=== PATIENT | male | born 1980 | race Caucasian/White ===

== ENCOUNTER 2016-07-22 21:31 | Emergency (ER) | payer OTHER, BC ==
[2016-07-22 21:59] VITALS: BP 133/81; PULSE 78; TEMP 97.9; BMI 28.5
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
[2016-07-22 22:59] LABS: BASOPHIL 0.4 % (0-2.0); EOSINOPHIL 4.6 % (0-4.5); MCH 33.9 pg (25.7-33.7); MCHC 33.9 g/dl (32.0-35.9); MEAN PLT VOLUME 7.3 fl (7.5-11.1); NEUTROPHILS 62.6 % (42.8-82.8); PLATELET COUNT 311 K/MM3 (134-434); RDW 13.9 % (11.9-15.9); WHITE BLOOD COUNT 8.2 K/mm3 (4.0-10.0)
[2016-07-22 23:56] LABS: HIV 1 & 2 AB NEGATIVE; HIV 1 AGp24 NEGATIVE
[2016-07-23 01:54] LABS: ALBUMIN 4.1 g/dl (3.4-5.0); ANION GAP 13 (8-16); CALCIUM 8.9 mg/dL (8.5-10.1); CHOLESTEROL 168 mg/dL (50-200); CO2 24 mmol/L (21-32); CREATININE 0.9 mg/dL (0.7-1.3); GLUCOSE,RANDOM 98 mg/dL (74-106); PHOSPHOROUS 3.5 mg/dL (2.5-4.9); SGPT/ALT 83 U/L (12-78); TOT PROT 7.7 g/dl (6.4-8.2)
[2016-07-23 01:56] LABS: ALK PHOS 76 U/L (45-117); BILIRUBIN,TOTAL 0.4 mg/dL (0.2-1.0)
[2016-07-23 01:57] LABS: LDH 226 U/L (87-241); SGOT/AST 49 U/L (15-37)
[2016-07-26 14:18] LABS: HEP B SURFACE AB Reactive (.)
== END 2016-07-22 23:19 | disposition home or self-care (01) ==
LOC: JER 21:31
DX: Z77.21 Contact with and (suspected) exposure to potentially hazardous body fluids (principal); X58.XXXA Exposure to other specified factors, initial encounter; Y93.89 Activity, other specified; Y92.238 Other place in hospital as the place of occurrence of the external cause; Y99.0 Civilian activity done for income or pay
CPT/HCPCS: 36415; 80053; 82465; 82977; 83615; 84100; 84478; 84550; 85025; 86704; 86706; 86803; 87389; 99281-25

== ENCOUNTER 2018-01-08 16:42 | Observation (INO) | payer OTHER, BC ==
--- NOTE | 2018-01-08 16:48 | PDOC ---
History of Present Illness - General Chief Complaint: CVA/TIA Stated Complaint: SYNCOPE History Source: Patient Past History - Past Medical History Allergies/Adverse Reactions: Allergies Allergy/AdvReac Type Severity Reaction Status Date / Time No Known Allergies Allergy Verified 10/30/14 12:41 Home Medications: Ambulatory Orders Carvedilol 0 mg PO DAILY 03/29/13 Simvastatin [Zocor -] 0 mg PO HS 03/29/13 Clonazepam [Klonopin] 0.5 mg PO BID #20 tab.rapdis 10/30/14 Cardiac Disorders: Yes (CT + stent 3y ago, classic presentation, no clear etio for early onset) HTN: Yes Hypercholesterolemia: Yes - Surgical History Abdominal Surgery: Yes Cardiac Surgery: Yes (STENT) - Immunization History Immunization Up to Date: Yes - Suicide/Smoking/Psychosocial Hx Smoking Status: No Smoking History: Never smoked Have you smoked in the past 12 months: No Number of Cigarettes Smoked Daily: 0 If you are a former smoker, when did you quit?: 2009 Hx Alcohol Use: Yes Drug/Substance Use Hx: No Substance Use Type: Alcohol
--- NOTE | 2018-01-08 16:55 | PDOC ---
Rapid Medical Evaluation Chief Complaint: Syncope/Near Syncope Medical Evaluation: Allergies Allergy/AdvReac Type Severity Reaction Status Date / Time No Known Allergies Allergy Verified 10/30/14 12:41 01/08/18 16:48 I have performed a brief in-person evaluation of this patient. The patient presents with a chief complaint of: dizziness/ + near syncopal episode Pertinent physical exam findings: when assisting with another patient who fell at entry, patient went aphasic and unresponsve , then became slack and fell to his knees. came to ~ 30sec but uncertain as to whereabouts and activity. I have ordered the following: taken to ER and CT head ordered. The patient will proceed to the ED for further evaluation. 01/08/18 16:55
[2018-01-08] MEDS ORDERED: SODIUM CHLORIDE 1,000 ML IV SCH (17:00)
--- NOTE | 2018-01-08 17:12 | PDOC ---
Attending Attestation - Physicial Exam PE: 01/08/18 18:04 Constitutional: Awake, alert, oriented. No acute distress. Head: Normocephalic. Atraumatic Eyes: PERRL. EOMI. Conjunctivae are not pale. ENT: Mucous membranes are moist and intact. Posterior pharynx without exudates or erythema. Uvula midline. Neck: Supple. Full ROM. No lymphadenopathy. Cardiovascular: Regular rate. Regular rhythm. S1, S2 regular. Distal pulses are 2+ and symmetric. Pulmonary/Chest: No evidence of respiratory distress. Clear to auscultation bilaterally No wheezing, rales or rhonchi. Abdominal: Soft and non-distended. There is no tenderness. No rebound, guarding or rigidity. No organomegaly. No palpable masses. Good bowel sounds. Back: No CVA tenderness. Musculoskeletal: No edema. No cyanosis. No clubbing. Full range of motion in all extremities. Nocalf tenderness. Radial/pedal pulses are intact and 2+ bilaterally Skin: (+) Neurofibroma scattered on skin, face and legs. Skin is warm and dry. Neurological: Alert and oriented to person, place, and time. Cranial nerves II -XII are grossly intact. Normal speech. Strength is grossly symmetric. No sensory deficits. (+) Subjective right arm weakness but full strength on exam. Psychiatric: Good eye contact. Normal interaction, affect and behavior. 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 He felt dizzy and fell to his knees and was laid n the floor by another hospital employee. He was no responding to anyomne for about 30 seconds and then came to and spoke. His complaint was rt arm weakness. 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 However, it does show chronic right occipital atrophy bilaterally, small chronic occipital infarcts. Patient has a history of coronary artery disease, has had myocardial infarctions and has had cardiac stents, hypercholesterolemia, polycythemia vera impression patient has multiple risk factors and is being admitted to telemetry Consults with neurology and cardiology will be obtained 01/08/18 19:33 Dr Sobeida Donnelly consulted and stated he would put in his orders Dr Lewis consulted for cardiology ct scan head chronic parietal and occipital infarcts,atrophy 01/08/18 23:17 IMP syncopal episode -multiple risk factors : [place], CAD,s/p cardiac stents, polycythemia vera, hypercholesterolemia. He was admitted to telemetry <Joleen Samuels - Last Filed: 01/08/18 23:19>
--- NOTE | 2018-01-08 17:14 | PDOC ---
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 Pt collapsed while assisting another facility patient in the waiting room. JACQUES Carlin observed the incident and reports the pt became aphasic and unresponsive before becoming slack and falling to his knees. Pt returned to normal level of alert after approx. 30 seconds. Noted to be pale. No trauma to head or neck. No witnessed seizure activity. Pt has no recollection of incident. At time of interview, pt is complaining of left arm paresthesia and dizziness. Denies nausea, vomiting, headache, trouble swallowing, SOB, or chest pain. Denies history of similar episodes. On Clopidogrel. PCP: Dr. Franky Avitia Hx: - Works as lead security officer at [employer] Hx: - Polycythemia Vera - IA x2 s/p stents - Cutaneous Neurofibromatosis - HTN - HLD Past History - Past Medical History Allergies/Adverse Reactions: Allergies Allergy/AdvReac Type Severity Reaction Status Date / Time No Known Allergies Allergy Verified 01/08/18 17:05 Home Medications: Ambulatory Orders Carvedilol 12.5 mg PO DAILY 01/08/18 Clopidogrel Bisulfate [Plavix] 75 mg PO DAILY 01/08/18 Escitalopram Oxalate [Lexapro -] 10 mg PO DAILY 01/08/18 Losartan Potassium [Cozaar -] 50 mg PO DAILY 01/08/18 Simvastatin [Zocor -] 20 mg PO HS 01/08/18 Cardiac Disorders: Yes (IA + stent 3y ago, classic presentation, no clear etio for early onset) HTN: Yes Hypercholesterolemia: Yes - Surgical History Abdominal Surgery: Yes Cardiac Surgery: Yes (STENT) - Immunization History Immunization Up to Date: Yes - Suicide/Smoking/Psychosocial Hx Smoking Status: No Smoking History: Never smoked Have you smoked in the past 12 months: No Number of Cigarettes Smoked Daily: 0 If you are a former smoker, when did you quit?: 2009 Hx Alcohol Use: Yes Drug/Substance Use Hx: No Substance Use Type: Alcohol Neuro Specific PMHX - Complaint Specific PMHX Glaucoma: No Review of Systems - Review of Systems Able to Perform ROS?: Yes Comments:: In addition to that documented in the HPI above, the additional ROS was obtained : Constitutional: Denies fevers or chills Eyes: Denies vision changes ENMT: Denies sore throat CV: Denies chest pain Resp: Denies SOB GI: Denies vomiting or diarrhea : Denies painful urination MSK: Denies recent trauma Skin: Denies new rashes Neuro: Per HPI Endocrine: Denies polyuria Heme: Denies bleeding disorders *Physical Exam - Physical Exam Comments: Constitutional: Well-developed, well-nourished male in no acute distress. Found sei-fowlers in hospital bed. Alert and oriented x4. Answered all questions appropriately and completely. Speech was non-labored, non-pressured. Head: Normocephalic. No obvious external signs of trauma. Eyes: PERRL. EOMI. Sclerae white. Conjunctiva moist and not injected. EARS: Hearing grossly intact. NOSE: No nasal discharge. Neck: Supple, trachea is midline. No JVD. Cardiovascular: Regular rate and regular rhythm. No murmur, rubs, clicks, or gallops. Peripheral pulses: Radial pulses full. Respiratory: Breathing unlabored. Equal chest rise and fall. Clear to auscultation bilaterally. No stridor, no wheezing, no rhonchi. Gastrointestinal: abdomen is soft, non-tender, non-distended. Neuro: Alert and oriented. Moving all four extremities spontaneously. No focal deficits, Cranial nerves intact, intact sensation to all four extremities. Upper and lower extremities: proximal and distal strength 5/5, certified medical biller strength 5/ 5 - equal and symmetric. Plantar flexion and dorsiflexion 5/5. Skin: Neurofibromas covering face, arms, chest, abdomen, and back. Globally warm , dry, and intact. No bruising or rashes. Psych: Affect: appropriate. Mood: normal. ED Treatment Course - LABORATORY CBC & Chemistry Diagram: 01/08/18 17:04 01/08/18 17:04 Medical Decision Making - Medical Decision Making *Reviewed vital signs, nursing notes, and prior visit documentation (if available). 37 y/o male s/p witnessed syncopal episode lasting approx. 30 seconds. No history of similar. Afebrile. Vitals unremarkable. NIHSS 0. Physical exam as described above. Stroke protocol was initiated. Pt is not a tPA candidate given rapid improvement of symptoms. D/D includes but not limited to CVA, TIA, arrhythmia, IA, seizure, hypoglycemia, electrolyte derangement, vasovagal. CT of Head revealed no acute intracranial hemorrhage or infarct. Minimal to mild focal posterior parieto-occipital cortical atrophy bilaterally. 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 Mild Chiari type I malformation. EKG revealed sinus rhythm with a ventricular rate of 81 bpm. Normal axis. Normal intervals. No ST segment elevation or depression. Q waves in V1, V2, and V4. EKG suggestive for previous anterolateral infarcts. CBC revealed borderline leukocytosis. H/H elevated consistent with history of polycythemia. CMP revealed mildly elevated AST and ALT with normal Alk Phos. Suspect secondary to statin therapy. Unchanged from previous lab draw. Troponin not elevated. Low suspicion for ACS. No active chest pain. Cholesterol and total LDL elevated. Consistent with history of hypercholesterolemia. PT/INR elevated. 18:[address] Lechuga, neurologist continuous wave operator. Awaiting call back. 18:[address] Ojeda. Discussed HPI, ED course, and current treatment plan. Agrees to admit pt to telemetry on observation status. Requested cardiology consultation and neurology consultation. Page sent to Dr. Burt, icu staff nurse continuous wave operator. Awaiting call back. 01/08/18 19:[address] Ferguson, icu staff nurse continuous wave operator. Agreed with current plan of management. No additional orders dictated. Requested formal consultation order be placed. 01/08/18 19:[address] Donnelly, neurologist continuous wave operator. Agreed with current plan of management. Stated he would add any additional orders himself. Formal consultation order placed. *DC/Admit/Observation/Transfer Diagnosis at time of Disposition: Syncope and collapse - Discharge Dispostion Condition at time of disposition: Stable Decision to Admit order: Yes - Referrals - Patient Instructions - Post Discharge Activity NIH Stroke Scale - Last Known Well Date/Time & Onset Date Last Known Well: 01/08/18 Time Last Known Well: 04:50 - Initial Evaluation Level of consciousness: Alert Ask patient the month and their age: Answers both correctly Ask patient to open & close eyes; make fist and let go: Obeys both correctly Best gaze (horizontal eye movement): Normal Visual field testing: No visual field loss Facial paresis (Show teeth/raise eyebrows/close eyes tight): Normal symmetrical movement Motor Function: Left Arm: Normal Motor Function: Right Arm: Normal (extends arm 90 (or 45) degrees for 10 seconds without drift Motor Function: Left Leg: Normal (extends leg 30 degrees for 5 seconds without drift) Motor Function: Right Leg: Normal (extends leg 30 degrees for 5 seconds without drift) Limb Ataxia: No ataxia Sensory(Use pinprick test arms,legs,trunk,face/side to side): Normal Best language (Describe picture, name items, read sentences): No Aphasia Dysarthria (read several words): Normal articulation Extinction and Inattention: No abnormality - Total Score NIH Stroke Scale Score: 0 tPA Exclusion Checklist 0-3hr - Time Elapsed Date last known well: 01/08/18 Time last known well: 16:45 Elaspsed time: Day(s) and 2 Hour(s) and 36 Minutes - Thrombolytic Therapy Candidate Is the patient eligible for Thrombolytic Therapy?: No - Exclusion Criteria 0-3hr SBP greater than 185 or DBP greater than 110mmHg despite tx: No Recent IC/spinal surgery,head trauma or stroke w/in last 3mo: No Hx of previous IC hemorrhage, IC neoplasm, AVM or aneurysm: No Active internal bleeding: No Blding diathesis(low plt ct, inc PTT,INR>1.7 or use of NOAC): No Symptoms suggest subarachnoid hemorrhage: No CT demonstrates multilobar infarct(>1/3 cerebral hemiphere): No Arterial puncture at noncompressible site in previous 7 days: No Blood glucose concentration less than 50mg/dL (2.7mmol/L): No - Relative Exclusion Criteria 0-3h Life expectancy <1yr/severe co-morbid illness/LINK TRAINER on admit: No Rapid improvement: Yes Recent acute IA (w/in previous 3 months): No Seizure at onset with postictal residual neuro impairments: No Major surgery or serious trauma w/in previous 14 days: No Recent GI or hemorrhage (w/in previous 21 days): No - Ineligibility reason(s) Reasons No tPA given: See reason(s) noted above
[2018-01-08 17:19] LABS: BASO % 1.2 % (0-2.0); HEMOGLOBIN 18.3 GM/dL (11.7-16.9); LYMPH % 18.6 % (8-40); MCH 35.2 pg (25.7-33.7); MCHC 34.4 g/dl (32.0-35.9); MEAN CELL VOLUME 102.1 fl (80-96); MEAN PLT VOLUME 7.2 fl (7.5-11.1); MONO % 8.1 % (3.8-10.2); NEUT % 70.1 % (42.8-82.8); PLATELET COUNT 387 K/MM3 (134-434); RBC 5.19 M/mm3 (4.00-5.60); RDW 13.5 % (11.9-15.9); WHITE BLOOD COUNT 10.8 K/mm3 (4.0-10.0)
[2018-01-08 17:25] LABS: INR 1.13 (0.83-1.09); PROTHROMBIN TIME (PATIENT) 13.3 SEC (9.7-13.0)
[2018-01-08 17:39] LABS: ALBUMIN 4.1 g/dl (3.4-5.0); ALK PHOS 81 U/L (45-117); ANION GAP 10 MMOL/L (8-16); BILIRUBIN,TOTAL 0.4 mg/dL (0.2-1); BLOOD UREA NITROGEN 9 mg/dL (7-18); CALCIUM 8.3 mg/dL (8.5-10.1); CHLORIDE 97 mmol/L (98-107); CHOLESTEROL 207 mg/dL (50-200); CO2 30 mmol/L (21-32); CREATININE 1.1 mg/dL (0.55-1.3); GLUCOSE,RANDOM 116 mg/dL (74-106); HDL CHOLESTEROL 54 mg/dL (40-60); POTASSIUM 4.4 mmol/L (3.5-5.1); SGOT/AST 50 U/L (15-37); SGPT/ALT 85 U/L (13-61); SODIUM 137 mmol/L (136-145); TOT PROT 8.1 g/dl (6.4-8.2); TRIGLYCERIDES 150 mg/dL (0-150)
[2018-01-08 19:09] VITALS: BMI 29.2
[2018-01-08] MEDS ORDERED: ASPIRIN 81 MG CHEWABLE TABLETS PO ONE (19:11)
[2018-01-08] MEDS ORDERED: ASPIRIN 81 MG CHEWABLE TABLETS ONE (19:14)
--- NOTE | 2018-01-08 19:36 | CON.NEURO ---
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 In the emergency room patient had a CAT scan of the head and was stabilized to be admitted to the floor since admission overnight patient had a telemetry. Patient was seen in the ER According to the patient he denies any recent travel no head trauma patient there is no family history of seizure. - Alcohol/Substance Use Hx Alcohol Use: Yes - Smoking History Smoking history: Never smoked Have you smoked in the past 12 months: No Aproximately how many cigarettes per day: 0 If you are a former smoker, when did you quit?: 2009 Home Medications - Allergies Allergies/Adverse Reactions: Allergies Allergy/AdvReac Type Severity Reaction Status Date / Time No Known Allergies Allergy Verified 01/08/18 17:05 - Home Medications Home Medications: Ambulatory Orders Carvedilol 12.5 mg PO DAILY 01/08/18 Clopidogrel Bisulfate [Plavix] 75 mg PO DAILY 01/08/18 Escitalopram Oxalate [Lexapro -] 10 mg PO DAILY 01/08/18 Losartan Potassium [Cozaar -] 50 mg PO DAILY 01/08/18 Simvastatin [Zocor -] 20 mg PO HS 01/08/18 Review of Systems - Review of Systems Neurological: reports: Headache, Incoordination Physical Exam-Neuro Vital Signs: Vital Signs Temperature 97.3 F L 01/08/18 16:42 Pulse Rate 80 01/08/18 19:21 Respiratory Rate 18 01/08/18 19:21 Blood Pressure 110/79 01/08/18 19:21 O2 Sat by Pulse Oximetry (%) 94 L 01/08/18 19:21 Constitutional: Yes: Well Nourished Neck: Yes: WNL Labs: CBC, BMP 01/08/18 17:04 01/08/18 17:04 INR, PTT INR 1.13 (0.83-1.09) H 01/08/18 17:04 - Neuro Exam Level Of Consciousness: Yes: Oriented to Person, Oriented to Place, Oriented to Time Speech: WNL Dominant Hand: Right Cranial Nerves II-XII Intact: Yes Gag: Present DTR's: 1+ Left Bicep, 1+ Right Bicep, 1+ Left Brachioradialis, 1+ Right Brachioradialis Response to light touch: Normal Response to pain prick: Normal Response to temperature: Normal Response to vibration: Normal Motor Strength: 4/5: Left Arm, Right Arm, Left Leg, Right Leg Gait: Deferred Imaging - Results Cat Scan: Image Reviewed Problem List - Problems (1) Syncope and collapse Assessment/Plan: syncope in a 37-year-old man with no medical history of seizure Rule out cardiac arrhythmia Neurological exam is within normal 1. Agree to admit and monitor 2. Review the MRI of the brain with no contrast 3. Follow-up with cardiology 4. EEG with seizure protocol Thank you very much for the kind referral Code(s): R55 - SYNCOPE AND COLLAPSE
--- NOTE | 2018-01-08 20:32 | HP ---
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 JACQUES Carlin observed the incident and reports the pt became aphasic and unresponsive before becoming slack and falling to his knees. Pt returned to normal level of alert after approx. 30 seconds. Noted to be pale. No trauma to head or neck. No witnessed seizure activity. - Smoking History Smoking history: Never smoked Have you smoked in the past 12 months: No Aproximately how many cigarettes per day: 0 If you are a former smoker, when did you quit?: 2009 - Alcohol/Substance Use Hx Alcohol Use: Yes Home Medications - Allergies Allergies/Adverse Reactions: Allergies Allergy/AdvReac Type Severity Reaction Status Date / Time No Known Allergies Allergy Verified 01/08/18 17:05 - Home Medications Home Medications: Ambulatory Orders Carvedilol 12.5 mg PO DAILY 01/08/18 Clopidogrel Bisulfate [Plavix] 75 mg PO DAILY 01/08/18 Escitalopram Oxalate [Lexapro -] 10 mg PO DAILY 01/08/18 Losartan Potassium [Cozaar -] 50 mg PO DAILY 01/08/18 Simvastatin [Zocor -] 20 mg PO HS 01/08/18 Physical Examination Vital Signs: Vital Signs Temperature 97.3 F L 01/08/18 16:42 Pulse Rate 80 01/08/18 19:21 Respiratory Rate 18 01/08/18 19:21 Blood Pressure 110/79 01/08/18 19:21 O2 Sat by Pulse Oximetry (%) 94 L 01/08/18 19:21 Constitutional: Yes: No Distress HENT: Yes: Atraumatic Neck: Yes: Supple Cardiovascular: Yes: Regular Rate and Rhythm Respiratory: Yes: CTA Bilaterally Gastrointestinal: Yes: Normal Bowel Sounds Extremities: Yes: WNL Edema: No Neurological: Yes: Alert, Oriented Labs: CBC, BMP 01/08/18 17:04 01/08/18 17:04 Problem List - Problems (1) Syncope and collapse Assessment/Plan: tele monitoring fu cardiac enzymes cardiology and neuro consult Code(s): R55 - SYNCOPE AND COLLAPSE Assessment/Plan Laboratory Tests 01/08/18 01/08/18 01/08/18 17:04 17:04 17:04 WBC 10.8 H RBC 5.19 Hgb 18.3 H Hct 53.0 H MCV 102.1 H MCH 35.2 H MCHC 34.4 RDW 13.5 Plt Count 387 D MPV 7.2 L Absolute Neuts (auto) 7.6 Neutrophils % 70.1 Lymphocytes % 18.6 Monocytes % 8.1 Eosinophils % 2.0 Basophils % 1.2 Nucleated RBC % 0 PT with INR 13.30 H INR 1.13 H Sodium 137 Potassium 4.4 Chloride 97 L Carbon Dioxide 30 Anion Gap 10 BUN 9 Creatinine 1.1 Creat Clearance w eGFR > 60 Random Glucose 116 H Calcium 8.3 L Total Bilirubin 0.4 AST 50 H ALT 85 H Alkaline Phosphatase 81 Creatine Kinase 54 Troponin I < 0.02 Total Protein 8.1 Albumin 4.1 Triglycerides 150 Cholesterol 207 H Total LDL Cholesterol 135 H HDL Cholesterol 54 Active Medications Generic Name Dose Route Start Last Admin Trade Name Freq PRN Reason Stop Dose Admin Carvedilol 12.5 mg 01/09/18 10:00 Coreg - PO DAILY [facility] Clopidogrel Bisulfate 75 mg 01/09/18 10:00 Plavix - PO DAILY [facility] Escitalopram Oxalate 10 mg 01/09/18 10:00 Lexapro - PO DAILY [facility] Heparin Sodium (Porcine) 5,000 unit 01/08/18 22:00 Heparin - SQ BID [facility] Sodium Chloride 1,000 mls @ 42 mls/hr 01/08/18 17:00 01/08/18 18:01 Normal Saline - IV 42 mls/hr ASDIR [facility] Administration Losartan Potassium 50 mg 01/09/18 10:00 Cozaar - PO DAILY [facility] Non-Formulary Medication 20 mg 01/08/18 22:00 Simvastatin PO HS [facility]
[2018-01-08 20:48] LABS: GAMMA GLUTAMYL TRANSPEPTIDASE 304 U/L (5-85)
[2018-01-08 21:00] LABS: GAMMA GLUTAMYL TRANSPEPTIDASE 305 U/L (5-85)
[2018-01-08] MEDS ORDERED: ATORVASTATIN CA 40 MG TABLET (FP) ONE (21:42)
[2018-01-08] MEDS ORDERED: HEPARIN NA (PORCINE) 5,000 UNITS/ML 1ML VIAL ONE (21:42)
[2018-01-08] MEDS: HEPARIN NA (PORCINE) 5,000 UNITS/ML 1ML VIAL SQ SCH (21:51)
[2018-01-08] MEDS ORDERED: ATORVASTATIN CA 10 MG TABLET (FP) PO SCH (22:00)
[2018-01-09 07:29] LABS: BASO % 2.1 % (0-2.0); HEMATOCRIT 49.2 % (35.4-49); HEMOGLOBIN 16.4 GM/dL (11.7-16.9); LYMPH % 22.1 % (8-40); MCH 34.3 pg (25.7-33.7); MCHC 33.4 g/dl (32.0-35.9); MEAN CELL VOLUME 102.5 fl (80-96); MEAN PLT VOLUME 7.6 fl (7.5-11.1); MONO % 10.7 % (3.8-10.2); NEUT % 63.1 % (42.8-82.8); PLATELET COUNT 290 K/MM3 (134-434); RDW 13.5 % (11.9-15.9); WHITE BLOOD COUNT 8.6 K/mm3 (4.0-10.0)
[2018-01-09 08:31] LABS: ALBUMIN 3.6 g/dl (3.4-5.0); ALK PHOS 75 U/L (45-117); ANION GAP 8 MMOL/L (8-16); BILIRUBIN,TOTAL 0.4 mg/dL (0.2-1); BLOOD UREA NITROGEN 17 mg/dL (7-18); CALCIUM 8.5 mg/dL (8.5-10.1); CHLORIDE 103 mmol/L (98-107); CO2 28 mmol/L (21-32); GLUCOSE,RANDOM 80 mg/dL (74-106); POTASSIUM 3.9 mmol/L (3.5-5.1); SGOT/AST 48 U/L (15-37); SGPT/ALT 73 U/L (13-61); SODIUM 139 mmol/L (136-145); TOT PROT 7.2 g/dl (6.4-8.2)
[2018-01-09] MEDS ORDERED: CLOPIDOGREL BISULFATE 75 MG TABLET (FP) PO SCH (10:00)
[2018-01-09] MEDS ORDERED: ESCITALOPRAM OXALATE 10 MG TABLET (FP) PO SCH (10:00)
[2018-01-09] MEDS ORDERED: LOSARTAN POTASSIUM 50 MG TABLET (FP) PO SCH (10:00)
[2018-01-09] MEDS ORDERED: CARVEDILOL 12.5 MG TABLET (FP) PO SCH (10:00)
[2018-01-09] MEDS: HEPARIN NA (PORCINE) 5,000 UNITS/ML 1ML VIAL SQ SCH (10:52)
--- NOTE | 2018-01-09 12:17 | CON.CARD ---
Consult Consult Specialty:: Cardiology Referred by:: Dr. 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 He has underlying history of CAD, NC s/p stent, polycythemia vera with previous history of phlebotomy (which he has not followed with his [employer] for past 4-5 years and was not phlebotomized for that duration), history of cutaneous neurofibromatosis, HTN and hypercholesterolemia. He was helping a patient during work yesterday and became aphasic and unresponsive collapsing on his knees and to the floor. He regained consciousness within 30 seconds but appeared pale. He denies chest pain, SOB or palpitations. He denies paroxysmal nocturnal dyspnea or orthopnea. He denies nausea, vomiting, diarrhea or abdominal pain. He denies headache or lightheadedness. He complains of vague numbness to the right shoulder area. Denies any prior syncopal episode. PCP: Franky Bansal MD - History Source History Provided By: Patient, Medical Record Limitations to Obtaining History: No Limitations - Past Medical History Cardio/Vascular: Yes: CAD, HTN, Hyperlipdemia, NC Pulmonary: Yes: Other (pneumothorax) Heme/Onc: Yes: Other (Polycythemia Vera) - Past Surgical History Past Surgical History: Yes: Stent - Alcohol/Substance Use Hx Alcohol Use: Yes History of Substance Use: reports: None - Smoking History Smoking history: Former smoker Aproximately how many cigarettes per day: 0 (smokes e cigarette) If you are a former smoker, when did you quit?: 2009 Home Medications - Allergies Allergies/Adverse Reactions: Allergies Allergy/AdvReac Type Severity Reaction Status Date / Time No Known Allergies Allergy Verified 01/08/18 17:05 - Home Medications Home Medications: Ambulatory Orders Carvedilol 12.5 mg PO DAILY 01/08/18 Clopidogrel Bisulfate [Plavix] 75 mg PO DAILY 01/08/18 Escitalopram Oxalate [Lexapro -] 10 mg PO DAILY 01/08/18 Losartan Potassium [Cozaar -] 50 mg PO DAILY 01/08/18 Simvastatin [Zocor -] 20 mg PO HS 01/08/18 Family Disease History - Family Disease History Family Disease History: Heart Disease: Grandparent (CAD, NC) Other Family History: DM, HTN Review of Systems - Review of Systems Constitutional: denies: Chills, Fever Cardiovascular: denies: Chest Pain, Palpitations, Shortness of Breath Respiratory: denies: Cough, Hemoptysis, Orthopnea, PND, SOB, SOB on Exertion Gastrointestinal: denies: Abdominal Pain, Constipation, Diarrhea, Melena, Nausea , Rectal Bleeding, Vomiting Musculoskeletal: denies: Back Pain, Joint Pain Neurological: reports: Numbness, Syncope. denies: Dizziness, Headache, Seizure , Unsteady Gait Hematology/Lymphatic: denies: Easily Bruised, Excessive Bleeding Vital Signs: Vital Signs Temperature 98.9 F 01/09/18 12:07 Pulse Rate 74 01/09/18 12:07 Respiratory Rate 16 01/09/18 12:07 Blood Pressure 108/77 01/09/18 12:07 O2 Sat by Pulse Oximetry (%) 96 01/09/18 12:07 Eyes: Yes: PERRL HENT: Yes: Atraumatic Neck: Yes: Supple Respiratory: Yes: CTA Bilaterally Gastrointestinal: Yes: Normal Bowel Sounds, Soft. No: Tenderness Cardiovascular: Yes: Regular Rate and Rhythm JVD: No Carotid Bruit: No PMI: Non-Displaced Heart Sounds: Yes: S1, S2. No: Gallop Murmur: No: Systolic Murmur, Diastolic Murmur Edema: No - Other Data Labs, Other Data: CBC, BMP 01/09/18 07:10 01/09/18 07:10 INR, PTT INR 1.13 (0.83-1.09) H 01/08/18 17:04 Troponin, BNP 01/08/18 01/08/18 17:04 21:40 Troponin I < 0.02 < 0.02 Sinus rhythm with T wave inversion in anterior leads Imaging - Results Cat Scan: Report Reviewed (Head CT unremarkable) MRI: Report Reviewed (Brain MRI unremarkable) EKG: Report Reviewed Problem List - Problems (1) CAD (coronary artery disease) Code(s): I25.10 - ATHSCL HEART DISEASE OF [place] CORONARY ARTERY W/O ANG PCTRS Qualifiers: Coronary Disease-Associated Artery/Lesion type: [place] artery [place] vs. transplanted heart: [place] heart Associated angina: without angina Qualified Code(s): I25.10 - Atherosclerotic heart disease of [place] coronary artery without angina pectoris (2) History of percutaneous coronary intervention Code(s): Z98.61 - CORONARY ANGIOPLASTY STATUS (3) HTN (hypertension) Code(s): I10 - ESSENTIAL (PRIMARY) HYPERTENSION Qualifiers: Hypertension type: essential hypertension Qualified Code(s): I10 - Essential (primary) hypertension (4) Hypercholesterolemia Code(s): E78.00 - PURE HYPERCHOLESTEROLEMIA, UNSPECIFIED (5) Polycythemia vera Code(s): D45 - POLYCYTHEMIA VERA (6) Abnormal LFTs Code(s): R94.5 - ABNORMAL RESULTS OF LIVER FUNCTION STUDIES (7) Syncope and collapse Code(s): R55 - SYNCOPE AND COLLAPSE Assessment/Plan 1. Syncope, etiology to be determined, rule out TIA vs. Vasovagal vs. dehydration 2. CAD, NC and PCI/stent 3. Polycythemia Vera 4. HTN 5. Hypercholesterolemia 6. Abnormal LFT PLAN: 1. Neuro input to follow 2. Transthoracic echocardiography to assess LV/RV and valvular function 3. Continue Clopidogrel 4. Continue Carvedilol and Losartan 5. Continue Lipitor 6. Eventually will also need to be seen by [employer] Further plans are to follow Ramón Jenkins MD
--- NOTE | 2018-01-09 14:18 | ECHO ---
Name: ASIYA LOFTON Exam:Adult Echocardiogram Study Date: 01/09/2018 09:00 AM Age: 37 yrs Reason For Study: SYNCOPE Height: 71 in Weight: 210 lb BSA: 2.2 m2 MMode/2D Measurements & Calculations IVSd: 0.98 cm Ao root diam: 2.9 cm LVIDd: 5.1 cm LA dimension: 3.2 cm LVIDs: 3.1 cm LVPWd: 0.79 cm EDV(Teich): 123.7 ml ESV(Teich): 36.5 ml Doppler Measurements & Calculations MV E max percy: 52.1 cm/sec Med Peak E' Percy: 5.8 cm/sec MV A max percy: 69.4 cm/sec Med E/e': 8.9 MV E/A: 0.75 Lat Peak E' Percy: 7.4 cm/sec MV dec time: 0.23 sec Lat E/e': 7.0 Procedure A two-dimensional transthoracic echocardiogram with color flow and Doppler was performed. The patient was in normal sinus rhythm during the exam. Left Ventricle The left ventricular size, thickness and function are normal. The left ventricular ejection fraction is normal. Ejection Fraction = 55. Grade I diastolic dysfunction, (abnormal relaxation pattern). There i s apical akinesis. Right Ventricle The right ventricle is not well visualized. Atria Normal left and right atrial size and function. Mitral Valve There is mild mitral valve thickening. There is trace mitral regurgitation. Tricuspid Valve The tricuspid valve is not well visualized, but is grossly normal. No tricuspid regurgitation. There was insufficient TR detected to calculate RV systolic pressure. Aortic Valve The aortic valve is normal in structure and function. No hemodynamically significant valvular aortic stenosis. No aortic regurgitation is present. Pulmonic Valve The pulmonic valve is not well visualized. Great Vessels The aortic root is normal size. Pericardium/Pleura There is no pericardial effusion. Interpretation Summary The left ventricular size, thickness and function are normal There is apical akinesis. Grade I diastolic dysfunction, (abnormal relaxation pattern). Normal left and right atrial size and function. There is trace mitral regurgitation. There was insufficient TR detected to calculate RV systolic pressure. The aortic valve is normal in structure and function. No hemodynamically significant valvular aortic stenosis. MD Lukas Willard 01/09/2018 02:18 PM
--- NOTE | 2018-01-09 16:19 | PN ---
Progress Note, Physician - Current Medication List Current Medications: Active Medications Atorvastatin Calcium (Lipitor -) 10 mg PO HS [facility] Last Admin: 01/08/18 21:51 Dose: 10 mg Carvedilol (Coreg -) 12.5 mg PO DAILY [facility] Last Admin: 01/09/18 10:52 Dose: 12.5 mg Clopidogrel Bisulfate (Plavix -) 75 mg PO DAILY [facility] Last Admin: 01/09/18 10:52 Dose: 75 mg Escitalopram Oxalate (Lexapro -) 10 mg PO DAILY [facility] Last Admin: 01/09/18 10:52 Dose: 10 mg Heparin Sodium (Porcine) (Heparin -) 5,000 unit SQ BID [facility] Last Admin: 01/09/18 10:52 Dose: 5,000 unit Sodium Chloride (Normal Saline -) 1,000 mls @ 42 mls/hr IV ASDIR [facility] Last Admin: 01/08/18 18:01 Dose: 42 mls/hr Losartan Potassium (Cozaar -) 50 mg PO DAILY [facility] Last Admin: 01/09/18 10:52 Dose: 50 mg - Objective Vital Signs: Vital Signs Temperature 97.4 F L 01/09/18 15:35 Pulse Rate 71 01/09/18 15:35 Respiratory Rate 18 01/09/18 15:35 Blood Pressure 118/84 01/09/18 15:35 O2 Sat by Pulse Oximetry (%) 99 01/09/18 15:18 Constitutional: Yes: No Distress HENT: Yes: Atraumatic Neck: Yes: Supple Cardiovascular: Yes: Regular Rate and Rhythm Respiratory: Yes: CTA Bilaterally Gastrointestinal: Yes: Normal Bowel Sounds Extremities: Yes: WNL Edema: No Peripheral Pulses WNL: Yes Neurological: Yes: Alert, Oriented Labs: CBC, BMP 01/09/18 07:10 01/09/18 07:10 INR, PTT INR 1.13 (0.83-1.09) H 01/08/18 17:04 Problem List - Problems (1) Syncope and collapse Code(s): R55 - SYNCOPE AND COLLAPSE
--- NOTE | 2018-01-09 16:22 | DS ---
Physical Examination Vital Signs: Vital Signs Temperature 97.4 F L 01/09/18 15:35 Pulse Rate 71 01/09/18 15:35 Respiratory Rate 18 01/09/18 15:35 Blood Pressure 118/84 01/09/18 15:35 O2 Sat by Pulse Oximetry (%) 99 01/09/18 15:18 Constitutional: Yes: No Distress HENT: Yes: Atraumatic Neck: Yes: Supple Cardiovascular: Yes: Regular Rate and Rhythm Respiratory: Yes: CTA Bilaterally Gastrointestinal: Yes: Normal Bowel Sounds Extremities: Yes: WNL Edema: No Neurological: Yes: Alert, Oriented Labs: CBC, BMP 01/09/18 07:10 01/09/18 07:10 Discharge Summary Reason For Visit: SYNCOPE AND COLLAPSE Current Active Problems Abnormal LFTs (Acute) CAD (coronary artery disease) (Acute) HTN (hypertension) (Acute) History of percutaneous coronary intervention (Acute) Hypercholesterolemia (Acute) Polycythemia vera (Acute) Syncope and collapse (Acute) Condition: Stable - Instructions - Home Medications Comprehensive Discharge Medication List: Ambulatory Orders Carvedilol 12.5 mg PO DAILY 01/08/18 Clopidogrel Bisulfate [Plavix] 75 mg PO DAILY 01/08/18 Escitalopram Oxalate [Lexapro -] 10 mg PO DAILY 01/08/18 Losartan Potassium [Cozaar -] 50 mg PO DAILY 01/08/18 Simvastatin [Zocor -] 20 mg PO HS 01/08/18 dc home fu cardio/neuro as out patient for further workup
--- NOTE | 2018-01-09 16:31 | EKG ---
Test Reason : Blood Pressure : / mmHG Vent. Rate : 081 BPM Atrial Rate : 081 BPM P-R Int : 192 ms QRS Dur : 092 ms QT Int : 402 ms P-R-T Axes : 066 011 -07 degrees QTc Int : 466 ms NORMAL SINUS RHYTHM ANTEROLATERAL INFARCT (CITED ON OR BEFORE 06-JUL-2012) ABNORMAL ECG WHEN COMPARED WITH ECG OF 29-MAR-2013 20:35, NONSPECIFIC T WAVE ABNORMALITY NOW EVIDENT IN INFERIOR LEADS INVERTED T WAVES HAVE REPLACED NONSPECIFIC T WAVE ABNORMALITY IN LATERAL LEADS QT HAS LENGTHENED Confirmed by MD Montse, Lukas ([id number]) on 01/09/2018 4:31:26 PM Referred By: Confirmed By:Lukas Willard MD
[2018-01-09 19:47] VITALS: BP 125/80; PULSE 80; TEMP 98.2
== END 2018-01-09 18:38 | disposition home or self-care (01) ==
LOC: JER 16:42 → JERBED 19:41 → J4W 01-09 15:35
PROVIDERS: ADMIT Internal Medicine; ATTEND Internal Medicine
PROC: 3E0337Z Introduction of Electrolytic and Water Balance Substance into Peripheral Vein, Percutaneous Approach (ICD-10-PCS; principal; 2018-01-08)
PROC: 3E013GC Introduction of Other Therapeutic Substance into Subcutaneous Tissue, Percutaneous Approach (ICD-10-PCS; 2018-01-08)
DX: R55 Syncope and collapse (principal); I25.2 Old myocardial infarction; I10 Essential (primary) hypertension; E78.5 Hyperlipidemia, unspecified; I25.10 Atherosclerotic heart disease of native coronary artery without angina pectoris; Z95.5 Presence of coronary angioplasty implant and graft; R94.5 Abnormal results of liver function studies; D45 Polycythemia vera
CPT/HCPCS: 36415; 70450-TC; 70551-TC; 80053; 82465; 82550; 82607; 82977; 83036; 83718; 83721; 84146; 84478; 84484; 85025; 85610; 86850; 86900; 86901; 93005; 93010; 93306-TC; 99285-25; G0378; J1644; J7030

== ENCOUNTER 2020-10-15 14:54 | Observation (INO) | payer BC ==
[2020-10-15 15:10] VITALS: BP 108/66; PULSE 71; TEMP 97.9; BMI 30.7
[2020-10-15 16:26] LABS: BASO % 1.7 % (0-2.0); EOS % 3.2 % (0-4.5); HEMATOCRIT 46.4 % (35.4-49); LYMPH % 27.9 % (8-40); MCH 32.1 pg (25.7-33.7); MCHC 34.4 g/dl (32.0-35.9); MEAN CELL VOLUME 93.4 fl (80-96); MEAN PLT VOLUME 6.8 fl (7.5-11.1); MONO % 9.1 % (3.8-10.2); NEUT % 58.1 % (42.8-82.8); PLATELET COUNT 325 10^3/uL (134-434); RBC 4.97 M/mm3 (4.00-5.60); RDW 13.4 % (11.9-15.9); WHITE BLOOD COUNT 7.4 K/mm3 (4.0-10.0)
[2020-10-15 16:29] LABS: CHLORIDE 103 mmol/L (98-107); SODIUM 137 mmol/L (136-145)
[2020-10-15 16:31] LABS: CALCIUM 8.8 mg/dL (8.5-10.1)
[2020-10-15 16:32] LABS: ALBUMIN 4.3 g/dl (3.4-5.0); ANION GAP 7 MMOL/L (8-16); BLOOD UREA NITROGEN 21.1 mg/dL (7-18); CO2 27 mmol/L (21-32); GLUCOSE,RANDOM 94 mg/dL (74-106)
[2020-10-15 16:35] LABS: CREATININE 1.2 mg/dL (0.55-1.3); SGOT/AST 20 U/L (15-37); SGPT/ALT 42 U/L (13-61)
[2020-10-15 16:36] LABS: BILIRUBIN,TOTAL 0.6 mg/dL (0.2-1)
[2020-10-15 16:37] LABS: TOT PROT 8.1 g/dl (6.4-8.2)
[2020-10-15 16:38] LABS: ALK PHOS 63 U/L (45-117)
== END 2020-10-15 20:54 | disposition left against medical advice (07) ==
LOC: JER 14:54 → JERBED 20:05
PROVIDERS: ADMIT Internal Medicine; ATTEND Internal Medicine
DX: R42 Dizziness and giddiness (principal); I11.9 Hypertensive heart disease without heart failure; I25.2 Old myocardial infarction; Z95.5 Presence of coronary angioplasty implant and graft; E78.00 Pure hypercholesterolemia, unspecified; E66.9 Obesity, unspecified; Z68.30 Body mass index [BMI] 30.0-30.9, adult; D45 Polycythemia vera; Q85.00 Neurofibromatosis, unspecified; I25.10 Atherosclerotic heart disease of native coronary artery without angina pectoris; Z87.891 Personal history of nicotine dependence
CPT/HCPCS: 36415; 70450-TC; 70551-TC; 71046-TC-FY; 72128-TC; 72146-TC; 80053; 84484; 85025; 93005; 93010; 99285-25; C9803; G0378; U0003; U0005

== ENCOUNTER 2021-09-28 12:00 | Emergency (ER) | payer BC ==
[2021-09-28 12:27] VITALS: TEMP 98.1; BMI 29.9
[2021-09-28 12:42] VITALS: RESP 18
[2021-09-28] MEDS ORDERED: ASPIRIN 81 MG CHEWABLE TABLETS PO ONE ×2 (12:51→13:01)
[2021-09-28] MEDS ORDERED: HEPARIN NA (PORCINE) 5,000 UNITS/ML 1ML VIAL IVPUSH PRN (12:53)
[2021-09-28] MEDS ORDERED: TICAGRELOR 90 MG TABLET PO ONE (12:56)
[2021-09-28] MEDS ORDERED: ASPIRIN 81 MG CHEWABLE TABLETS ONE (12:56)
[2021-09-28 12:57] LABS: BASO % 0.9 % (0-2.0); EOS % 1.9 % (0-4.5); HEMATOCRIT 57.6 % (35.4-49); HEMOGLOBIN 19.7 GM/dL (11.7-16.9); LYMPH % 15.5 % (8-40); MCH 34.2 pg (25.7-33.7); MCHC 34.2 g/dl (32.0-35.9); MEAN PLT VOLUME 6.6 fl (7.5-11.1); MONO % 8.3 % (3.8-10.2); NEUT % 73.4 % (42.8-82.8); PLATELET COUNT 323 10^3/uL (134-434); RBC 5.76 M/mm3 (4.00-5.60); RDW 16.1 % (11.9-15.9); WHITE BLOOD COUNT 9.9 K/mm3 (4.0-10.0)
[2021-09-28] MEDS ORDERED: HEPARIN NA (PORCINE) 5,000 UNITS/ML 1ML VIAL ONE (12:57)
[2021-09-28] MEDS ORDERED: TICAGRELOR 60 MG TABLET PO ONE (13:01)
[2021-09-28] MEDS ORDERED: HEPARIN NA (PORCINE) 5,000 UNITS/ML 1ML VIAL IVPUSH ONE (13:02)
[2021-09-28 13:04] LABS: INR 1.18 (0.83-1.09); PROTHROMBIN TIME (PATIENT) 13.6 SEC (9.7-13.0)
[2021-09-28 13:07] LABS: ACTIVATED PTT 34.6 SECONDS (25.2-36.5)
[2021-09-28 13:12] LABS: CHLORIDE 98 mmol/L (98-107); SODIUM 137 mmol/L (136-145)
[2021-09-28 13:14] LABS: ANION GAP 11 MMOL/L (8-16); BLOOD UREA NITROGEN 8.7 mg/dL (7-18); CALCIUM 9.3 mg/dL (8.5-10.1); CO2 28 mmol/L (21-32); GLUCOSE,RANDOM 133 mg/dL (74-106)
[2021-09-28 13:15] LABS: MAGNESIUM 2.4 mg/dL (1.8-2.4)
[2021-09-28 13:17] LABS: SGPT/ALT 87 U/L (13-61)
[2021-09-28 13:18] LABS: SGOT/AST 59 U/L (15-37)
[2021-09-28 13:19] LABS: BILIRUBIN,TOTAL 0.9 mg/dL (0.2-1); TOT PROT 8.3 g/dl (6.4-8.2)
[2021-09-28 13:20] LABS: ALK PHOS 93 U/L (45-117)
[2021-09-28 13:22] VITALS: BP 121/78; PULSE 90
[2021-09-29] MEDS ORDERED: TICAGRELOR 90 MG TABLET PO ONE (12:52)
== END 2021-09-28 13:26 | disposition short-term general hospital (02) ==
LOC: JER 12:00
PROC: 3E033GC Introduction of Other Therapeutic Substance into Peripheral Vein, Percutaneous Approach (ICD-10-PCS; principal; 2021-09-28)
PROC: 3E033GC Introduction of Other Therapeutic Substance into Peripheral Vein, Percutaneous Approach (ICD-10-PCS; 2021-09-28)
DX: I25.10 Atherosclerotic heart disease of native coronary artery without angina pectoris (principal); I21.3 ST elevation (STEMI) myocardial infarction of unspecified site
CPT/HCPCS: 36415; 71045-TC-FY; 80053; 82550; 83735; 84484; 85025; 85610; 85730; 93005; 93010; 99285-25; C9803-CS; J1644; U0003; U0005

== ENCOUNTER 2023-02-07 14:36 | Emergency (ER) | payer BC ==
[2023-02-07 14:53] VITALS: BP 141/98; PULSE 84; RESP 16; TEMP 98.3; BMI 30.7
[2023-02-07] MEDS ORDERED: LIDOCAINE HCL 2% JELLY 10 ML CARTRIDGE PR ONE (15:13)
[2023-02-07] MEDS ORDERED: LIDOCAINE HCL 2% JELLY 6 ML TP ONE (15:23)
[2023-02-07 15:42] LABS: PH,URINE 6.5 (5.0-8.0); URINE APPEARANCE CLEAR; URINE BILIRUBIN NEGATIVE (NEGATIVE); URINE COLOR YELLOW; URINE GLUCOSE (UA) NEGATIVE (NEGATIVE); URINE KETONE TRACE (NEGATIVE); URINE LEUK ESTERASE NEGATIVE (NEGATIVE); URINE NITRITE NEGATIVE (NEGATIVE); URINE PROTEIN NEGATIVE (NEGATIVE)
== END 2023-02-07 16:43 | disposition home or self-care (01) ==
LOC: JERFT 14:36
DX: K62.89 Other specified diseases of anus and rectum (principal); K64.4 Residual hemorrhoidal skin tags; R30.0 Dysuria; R33.9 Retention of urine, unspecified
CPT/HCPCS: 74018-TC-FY; 81003; 87086; 99284-25

== ENCOUNTER 2023-12-11 13:10 | Emergency (ER) | payer BC ==
[2023-12-11 13:19] VITALS: BMI 30.7
[2023-12-11] MEDS: SODIUM CHLORIDE 0.9% 500 ML INFUS.BAG IV ONE ×2 (14:16→16:26)
[2023-12-11] MEDS ORDERED: METOCLOPRAMIDE HCL INJECTION 10 MG/2 ML VIAL ONE (14:27)
[2023-12-11] MEDS ORDERED: ACETAMINOPHEN INJECTION 100 ML ONE (14:27)
[2023-12-11] MEDS: ACETAMINOPHEN 1000 MG/100 ML BAG IVPB ONE (14:50)
[2023-12-11] MEDS: METOCLOPRAMIDE HCL INJECTION 10 MG/2 ML VIAL IVPB ONE (14:50)
[2023-12-11 15:42] VITALS: RESP 20
[2023-12-11 17:29] VITALS: BP 133/86; PULSE 94; TEMP 97.6
== END 2023-12-11 18:23 | disposition home or self-care (01) ==
LOC: JERFT 13:10
PROC: 3E033NZ Introduction of Analgesics, Hypnotics, Sedatives into Peripheral Vein, Percutaneous Approach (ICD-10-PCS; principal; 2023-12-11)
PROC: 3E033GC Introduction of Other Therapeutic Substance into Peripheral Vein, Percutaneous Approach (ICD-10-PCS; 2023-12-11)
DX: R51.9 Headache, unspecified (principal)
CPT/HCPCS: 99284-25; J0131